=== PATIENT | male | born 2000 | race Caucasian/White ===

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

== ENCOUNTER 2019-04-14 21:12 | Emergency (ER) | payer MEDICAID ==
[2019-04-14] MEDS ORDERED: Divalproex Sodium Delayed-Release 500 MG Tab.CR PO STA (22:52)
--- NOTE | 2019-04-14 22:52 | EDM.PDOC ---
ED HPI GENERAL MEDICAL PROBLEM - General Chief Complaint: Neurological Problem Stated Complaint: SEIZURE DISORDER/DIFFICULTY COMPLETING SENTENCES Time Seen by Provider: 04/14/19 21:52 Source of Information: Reports: Patient, Family (Parents) History Limitations: Reports: Physical Impairment (The patient amswers a few questions, but the majority of the history is provided by his mother) - History of Present Illness INITIAL COMMENTS - FREE TEXT/NARRATIVE: The patient has a history of Chiari malformation and epilepsy. He has been on a number of antiepileptic medications over his lifetime, most recently Depakote and Trileptal, however, his Neurologist switched his Depakote to Topamax; the patient has been off Depakote for about 3 weeks, and was started on Topamax in January. He is now on Topamax 200 mg BID along with Trileptal 600 mg BID. The patient's mother states that prior to the switching of Depakote to Topamax, the patient had about 1 generalized tonic-clonic seizure per month, but since the switch, he has had about 2 seizures per week over the last couple of weeks. His most recent seizure was this past , 04/11/2019, where he experienced a generalized tonic-clonic seizure for about 18 seconds, followed by about 20 minutes of being postictal. He did well on 04/12/2019 and 04/13/2019, but today complained of having an "electrical storm in my brain", which the patient often states prior to having a seizure. She states that he has also had trouble talking all day. She states that the patient then had a brief generalized seizure here in the emergency department, and although I was alerted to it, it was over by the time I got to his room. The patient's mother states that the patient has not recently had sleep deprivation. No recent illness. He does not drink alcohol or use recreational drugs. The patient is also on Ritalin for treatment of ADHD. The patient's mother states that the patient's last EEG was about 3 years ago. She is not sure when the last imaging study of his brain was, either CT or MRI - it is likely been years. The patient's retail management keyholder is Dr. Lyn Wright. His Neurologist is Dr. Reginald Kent. - Related Data Allergies Allergy/AdvReac Type Severity Reaction Status Date / Time No Known Allergies Allergy Verified 03/01/18 20:25 Home Meds: Home Meds Methylphenidate HCl [Ritalin LA] 40 mg PO DAILY 05/07/14 [History] Methylphenidate [Ritalin] 10 mg PO DAILY 05/07/14 [History] OXcarbazepine [Trileptal] 600 mg PO BID 05/07/14 [History] guanFACINE HCl [Tenex] 1 tab PO TID 05/07/14 [History] Divalproex Sodium [Depakote] 1 tab PO Q12H #14 tablet. 04/14/19 [Rx] Topiramate [Topamax] 200 mg PO BID 04/14/19 [History] levOCARNitine [Levocarnitine] 1 tab PO BID 04/14/19 [History] Past Medical History Neurological History: Reports: Seizure, Other (See Below) (Chiari I malformation ) Psychiatric History: Reports: ADHD, Autism, OCD - Past Surgical History HEENT Surgical History: Reports: Myringotomy w Tube(s) (bilateral) GI Surgical History: Reports: Other (See Below) (Pyloroplasty) Male Surgical History: Reports: Circumcision Social & Family History - Tobacco Use Smoking Status *Q: Never Smoker Second Hand Smoke Exposure: No - Caffeine Use Caffeine Use: Reports: Coffee - Alcohol Use Alcohol Use History: No - Recreational Drug Use Recreational Drug Use: No - Living Situation & Occupation Living situation: Reports: Single, with Family Occupation: Student ED ROS GENERAL - Review of Systems Review Of Systems: ROS reveals no pertinent complaints other than HPI. - Physical Exam Exam: See Below Exam Limited By: No Limitations General Appearance: Alert, WD/WN, No Apparent Distress Eye Exam: Bilateral Eye: EOMI, Normal Inspection Ears: Normal External Exam, Hearing Grossly Normal Nose: Normal Inspection Throat/Mouth: Normal Inspection, Normal Lips, Normal Voice, No Airway Compromise Head Exam: Atraumatic, Normocephalic Neck: Normal Inspection, Full Range of Motion Respiratory/Chest: No Respiratory Distress, Lungs Clear, Normal Breath Sounds, No Accessory Muscle Use Cardiovascular: Normal Peripheral Pulses, Regular Rate, Rhythm, No Gallop, No JVD, No Murmur, No Rub GI/Abdominal: Normal Bowel Sounds, Soft, Non-Tender, No Organomegaly, No Distention, No Abnormal Bruit, No Mass, Other (Obese) (Male) Exam: Deferred Rectal (Males) Exam: Deferred Neuro Exam (Abbreviated): Alert, No Motor/Sensory Deficits Back Exam: Normal Inspection, Full Range of Motion, NT Extremities: Normal Inspection, Normal Range of Motion, No Pedal Edema, Normal Capillary Refill Psychiatric: Normal Affect Skin Exam: Warm, Dry, Intact, Normal Color, No Rash Course - Vital Signs Last Recorded V/S: Last Vital Signs Temp 37.1 C 04/14/19 21:54 Pulse 69 04/14/19 21:54 Resp 18 04/14/19 21:54 BP 142/77 H 04/14/19 21:54 Pulse Ox 99 04/14/19 21:54 - Orders/Labs/Meds Labs: Laboratory Tests 04/14/19 04/14/19 Range/Units 22:11 22:11 WBC 8.32 (4.23-9.07) K/mm3 RBC 4.88 (4.63-6.08) M/mm3 Hgb 14.4 (13.7-17.5) gm/L Hct 41.4 (40.1-51.0) % MCV 84.8 (79.0-92.2) fl MCH 29.5 (25.7-32.2) pg MCHC 34.8 (32.2-35.5) g/dl RDW Std Deviation 39.0 (35.1-43.9) fL Plt Count 361 H (163-337) K/mm3 MPV 9.4 (9.4-12.3) fl Neutrophils % (Manual) 46 (40-60) % Band Neutrophils % 0 (0-10) % Lymphocytes % (Manual) 40 (20-40) % Atypical Lymphs % 0 % Monocytes % (Manual) 11 H (2-10) % Eosinophils % (Manual) 3 (0.8-7.0) % Basophils % (Manual) 0 L (0.2-1.2) Platelet Estimate Adequate RBC Morph Comment Normal Sodium 142 (136-145) mEq/L Potassium 3.6 (3.5-5.1) mEq/L Chloride 108 H (98-107) mEq/L Carbon Dioxide 23 (21-32) mEq/L Anion Gap 14.6 (5-15) BUN 11 (7-18) mg/dL Creatinine 1.0 (0.7-1.3) mg/dL Est Cr Clr Drug Dosing 111.08 mL/min Estimated GFR (MDRD) > 60 (>60) mL/min BUN/Creatinine Ratio 11.0 L (14-18) Glucose 94 (74-106) mg/dL Calcium 9.0 (8.5-10.1) mg/dL Phosphorus 4.1 (2.6-4.7) mg/dL Magnesium 2.0 (1.8-2.4) mg/dl Total Bilirubin 0.2 (0.2-1.0) mg/dL AST 10 L (15-37) U/L ALT 26 (16-63) U/L Alkaline Phosphatase 98 (46-116) U/L Total Protein 7.8 (6.4-8.2) g/dl Albumin 4.1 (3.4-5.0) g/dl Globulin 3.7 gm/dL Albumin/Globulin Ratio 1.1 (1-2) Meds: Medications Discontinued Medications Generic Name Dose Route Start Last Admin Trade Name Freq PRN Reason Stop Dose Admin Divalproex Sodium 1,000 mg 04/14/19 22:52 04/14/19 23:23 Depakote PO 04/14/19 22:53 1,000 mg ONETIME STA Administration - Re-Assessments/Exams Free Text/Narrative Re-Assessment/Exam: 04/14/19 22:44 As per the HPI, the patient appears to be having increased frequency of seizures after being switched from Depakote to Topamax, despite continuation of Trileptal. I have ordered a CBC, CMP, magnesium level, and phosphate level to make sure that there are no metabolic causes of his increased seizure activity, but they are most likely due to ineffectiveness of Topamax compared to Depakote. Case discussed with Raghavendra at [facility] at 22:37. Case then discussed with Dr. Amberly Spencer, Neurologist on-call at [facility], at 22:47. He queried as to why the patient's Depakote have been discontinued. I am not sure, but I note that the patient is on levocarnitine, suggesting that the patient may have developed elevated ammonia levels due to Depakote toxicity. In addition, the patient's mother had told me that the patient had developed hand shakiness while on Depakote. Dr. Spencer noted that Depakote is a very good antiepileptic medication, and that Ritalin can cause hand shakiness, as well (in addition to lowering seizure threshold). He recommended that, in addition to the Topamax and Trileptal that the patient is already on, that we give the patient 1000 mg of either oral or IV Depakote, then start him on 500 mg Depakote po BID. The parents are then to follow-up with Dr. Kent. Dr. Spencer advised against a CT of the head. 04/14/19 23:22 The patient's CBC is remarkable for platelets elevated at 361,000, but is otherwise unremarkable. His CMP is unremarkable. His magnesium level is normal at 2.0. His phosphate level is normal at 4.1. I will discharge patient home with a prescription for Depakote 500 mg po BID, and the patient's mother is to contact the patient's Neurologist first thing in the morning. Departure - Departure Time of Disposition: 23:23 Disposition: Home, Self-Care 01 Condition: Fair Clinical Impression: Epileptic seizure, generalized - Discharge Information *PRESCRIPTION DRUG MONITORING PROGRAM REVIEWED*: Not Applicable *COPY OF PRESCRIPTION DRUG MONITORING REPORT IN PATIENT DANIELA: Not Applicable Prescriptions: Divalproex Sodium [Depakote] 1 tab PO Q12H #14 tablet. Instructions: Seizure, Adult, [id number]-fl-Avau Referrals: Lyn Wright MD [Primary Care Provider] - Reginald Kent MD [Ordering Only Provider] - Forms: ED Department Discharge Additional Instructions: Seng was seen in the emergency room for increased seizure frequency, after his Depakote was switched to Topamax. Workup in the ER included blood work, which returned normal. Seng is not anemic, and no electrolyte abnormalities were found. His case was discussed with the Neurologist Dr. Amberly Spencer, who recommended that we give Seng a loading dose of Depakote, then restart him on 500 mg twice a day. A prescription for Depakote has been sent to the [facility], located in the [place] store. Give Seng one tablet of Depakote every 12 hours, starting tomorrow morning, 04/15/2019, as prescribed. Contact the office of Seng's Neurologist, Dr. Reginald Kent, first thing in the morning, to arrange to be seen as soon as possible. Let the hotel receptionist know that this is a follow-up from the emergency room. If any other problems, please do not hesitate to return Seng to the ER.
== END 2019-04-14 23:40 | disposition home or self-care (01) ==
LOC: JD.ED 21:12
DX: G40.409 Other generalized epilepsy and epileptic syndromes, not intractable, without status epilepticus (principal); F90.9 Attention-deficit hyperactivity disorder, unspecified type; Z79.899 Other long term (current) drug therapy
CPT/HCPCS: 36415; 80053; 83735; 84100; 85007; 85027; 99284; A9270; 99283

== ENCOUNTER 2024-12-24 17:49 | Emergency (ER) | payer MEDICARE, MEDICAID | END 2024-12-24 20:36 | disposition home or self-care (01) | LOC: JD.ED 17:49 | DX: M75.51 Bursitis of right shoulder (principal); E78.00 Pure hypercholesterolemia, unspecified; K21.9 Gastro-esophageal reflux disease without esophagitis; Z88.8 Allergy status to other drugs, medicaments and biological substances; Z91.048 Other nonmedicinal substance allergy status; Z91.030 Bee allergy status; Z79.899 Other long term (current) drug therapy; Z79.811 Long term (current) use of aromatase inhibitors; Z86.16 Personal history of COVID-19 | CPT/HCPCS: 73200-26-RT; 73200-RT; 99283 ==